=== PATIENT | male | born 1960 | race Caucasian/White ===

== ENCOUNTER → 2019-01-18 | Outpatient (CLI) | payer OTHER | END | disposition home or self-care (01) | LOC: RAD 13:22 | PROVIDERS: ATTEND Family Medicine | DX: R91.8 Other nonspecific abnormal finding of lung field (principal); R05 Cough | CPT/HCPCS: 71046 ==

== ENCOUNTER → 2019-03-14 | Outpatient (CLI) | payer OTHER | END | disposition home or self-care (01) | LOC: RAD 15:56 | PROVIDERS: ATTEND Family Medicine | DX: R05 Cough (principal) | CPT/HCPCS: 71046 ==

== ENCOUNTER 2019-05-06 08:20 | Outpatient (CLI) | payer OTHER | END 2019-05-06 23:59 | disposition home or self-care (01) | LOC: CFH 08:20 | PROVIDERS: ATTEND Internal Medicine | DX: I31.3 Pericardial effusion (noninflammatory) (principal); R91.8 Other nonspecific abnormal finding of lung field | CPT/HCPCS: 71250 ==

== ENCOUNTER 2019-05-17 06:22 | Day surgery (SDC) | payer OTHER ==
[~2019-05-17] VITALS: Ht 174 cm; Wt 68.7 kg
[2019-05-17] MEDS ORDERED: LACTATED RINGERS 1,000 ML IV SCH (07:14)
[2019-05-17] MEDS ORDERED: NONE PER PT (07:15)
[2019-05-17 07:37] VITALS: BP 119/78
[2019-05-17] MEDS ORDERED: FENTANYL PF 250 MCG/5ML ONE (08:07)
[2019-05-17] MEDS ORDERED: NEOSTIGMINE 1 MG/ML, 10ML ONE (09:35)
[2019-05-17] MEDS ORDERED: PROPOFOL 10 MG/ML, 20ML ONE (09:35)
[2019-05-17] MEDS ORDERED: DEXAMETHASONE 4 MG/ML, 1ML ONE (09:35)
[2019-05-17] MEDS ORDERED: ROCURONIUM 10MG/ML,5ML ONE (09:35)
[2019-05-17] MEDS ORDERED: GLYCOPYRROLATE 0.2MG/1ML, 5ML ONE (09:35)
[2019-05-17] MEDS ORDERED: CEFAZOLIN 1,000 MG ONE (09:35)
[2019-05-17] MEDS ORDERED: ONDANSETRON 2MG/ML, 2ML ONE (09:35)
[2019-05-17] MEDS ORDERED: SUCCINYLCHOLINE 20 MG/ML, 10ML ONE (09:35)
[2019-05-17] MEDS ORDERED: LABETALOL 5MG/ML, 20ML IV PRN (10:00)
[2019-05-17] MEDS ORDERED: OXYcodone 5 MG/5 ML ORAL.SOL UDC PO PRN (10:00)
[2019-05-17] MEDS ORDERED: FENTANYL PF 100 MCG/2ML IV PRN (10:00)
[2019-05-17] MEDS ORDERED: HYDROmorphone 2 MG/ML, 1ML IVPush PRN (10:00)
[2019-05-17] MEDS ORDERED: hydrALAzine 20 MG/ML, 1ML IV PRN (10:00)
[2019-05-17] MEDS ORDERED: ALBUTEROL SULFATE 2.5 MG/3 ML NPPB PRN (10:00)
[2019-05-17] MEDS ORDERED: MEPERIDINE/PF 25MG/0.5ML IVPush PRN (10:00)
[2019-05-17] MEDS ORDERED: DIAZEPAM 5 MG/ML, 2ML IVPush PRN (10:00)
[2019-05-17] MEDS ORDERED: PROMETHAZINE 25 MG/ML, 1ML IV PRN (10:00)
[2019-05-17] MEDS ORDERED: ACETAMINOPHEN 325 MG TABLET PO PRN (10:00)
[2019-05-17] MEDS ORDERED: KETOROLAC 30 MG/1 ML IV PRN (10:00)
== END 2019-05-17 11:55 | disposition home or self-care (01) ==
LOC: OUT 06:22
PROVIDERS: ATTEND Internal Medicine
DX: R59.1 Generalized enlarged lymph nodes (principal); J45.909 Unspecified asthma, uncomplicated; F15.90 Other stimulant use, unspecified, uncomplicated; Z79.899 Other long term (current) drug therapy; Z86.19 Personal history of other infectious and parasitic diseases; Z87.891 Personal history of nicotine dependence; Z88.2 Allergy status to sulfonamides; Z98.890 Other specified postprocedural states
CPT/HCPCS: 31653; 71045; 88172; 88173; 88177; 88305; 88312; J0330; J0690; J1100; J2405; J2704; J3010; J7120; 31629; J2710

== ENCOUNTER 2020-05-29 09:04 | Day surgery (SDC) | payer OTHER ==
[~2020-05-29] VITALS: Ht 172.7 cm; Wt 65.6 kg
[~2020-05-29 09:04] MED LIST: ALBU18HF INH; AMOXICILLIN PO; NONE PER PT
[2020-05-29] MEDS ORDERED: PROPOFOL 50 ML ONE ×2 (09:10→11:43)
[2020-05-29] MEDS ORDERED: FENTANYL PF 100 MCG/2ML ONE (09:10)
[2020-05-29] MEDS ORDERED: MIDAZOLAM 1 MG/ML, 2ML ONE (09:10)
[2020-05-29] MEDS ORDERED: LACTATED RINGERS 1,000 ML IV ONE (09:41)
[2020-05-29] MEDS ORDERED: CHLORHEXIDINE 15 ML UDC MM STA (09:41)
[2020-05-29 09:42] VITALS: BP 121/78
[2020-05-29] MEDS ORDERED: NEOSTIGMINE 1 MG/ML, 10ML ONE (11:10)
[2020-05-29] MEDS ORDERED: ROCURONIUM 10 MG/ML,10ML ONE (11:10)
[2020-05-29] MEDS ORDERED: GLYCOPYRROLATE 0.2MG/1ML, 5ML ONE (11:10)
[2020-05-29] MEDS ORDERED: HYDROmorphone 1 MG/ML, 1ML INJ IVPush PRN (11:30)
[2020-05-29] MEDS ORDERED: MEPERIDINE/PF 25MG/0.5ML IVPush PRN (11:30)
[2020-05-29] MEDS ORDERED: ACETAMINOPHEN 325 MG TABLET PO PRN (11:30)
[2020-05-29] MEDS ORDERED: PROMETHAZINE 25 MG/ML, 1ML IVPush PRN (11:30)
[2020-05-29] MEDS ORDERED: ONDANSETRON 2MG/ML, 2ML IVPush PRN (11:30)
[2020-05-29] MEDS ORDERED: FENTANYL PF 100 MCG/2ML IV PRN (11:30)
[2020-05-29] MEDS ORDERED: OXYcodone 5 MG/5 ML ORAL.SOL UDC PO PRN (11:30)
[2020-05-29] MEDS ORDERED: DIAZEPAM 5 MG/ML, 2ML IVPush PRN (11:30)
== END 2020-05-29 13:55 | disposition home or self-care (01) ==
LOC: OUT 09:04
PROVIDERS: ATTEND Internal Medicine
DX: R91.8 Other nonspecific abnormal finding of lung field (principal); Z20.828 Contact with and (suspected) exposure to other viral communicable diseases; R59.1 Generalized enlarged lymph nodes; J84.10 Pulmonary fibrosis, unspecified; D86.0 Sarcoidosis of lung; B19.20 Unspecified viral hepatitis C without hepatic coma; Z79.899 Other long term (current) drug therapy; Z88.2 Allergy status to sulfonamides
CPT/HCPCS: 31624; 31625; 31653; 36415; 71045; 87635; 88112; 88172; 88173; 88177; 88305; 88312; J2250; J2704; J2710; J3010; J7120; 31628; 31629

== ENCOUNTER 2021-06-14 09:22 | Outpatient (CLI) | payer OTHER | END 2021-06-14 23:59 | disposition home or self-care (01) | LOC: CFH 09:22 | PROVIDERS: ATTEND Internal Medicine | DX: D86.0 Sarcoidosis of lung (principal) | CPT/HCPCS: 71250 ==